=== PATIENT | male | born 1950 | race Two or more races ===

== ENCOUNTER → 2024-04-08 | Emergency (ER) | payer OTHER ==
[~2024-04-08] VITALS: Ht 175.3 cm; Wt 73.5 kg
[~2024-04-08] MED LIST: ACYCLOVIR SODIUM 500 MG VIAL IV ONE; ATORVASTATIN CA10 MG PO; COZAAR25 MG PO; METHYLPREDNISOLONE SOD SUCC 125 MG VIAL IV ONE
[2024-04-08 12:14] LABS: HEMATOCRIT 42.2 % (39.0-48.0); HEMOGLOBIN 14.8 g/dL (13-16.00); MEAN CELL VOLUME 84.6 fL (80.0-100.00); MEAN CORPUSCULAR HEMOGLOBIN 29.7 pg (27.00-32.0); MEAN CORPUSCULAR HGB CONC 35.1 g/dl (32.0-36.0); PLATELET COUNT 189 K/uL (150-450); RED BLOOD COUNT 4.99 M/uL (4.00-6.00)
[2024-04-08 12:34] LABS: CALCIUM 9.3 mg/dL (8.5-10.1); CREATININE SERUM 1.53 mg/dL (0.70-1.30); GFR 45.09; POTASSIUM 4.37 mEq/L (3.5-5.1)
[2024-04-08 13:18] LABS: PH,URINE 5.5 (5.0-8.0); URINE APPEARANCE Cloudy; URINE BACTERIA 12.5 uL (0.0-1933); URINE BILIRRUBIN Negative (NEGATIVE); URINE BLOOD Moderate; URINE COLOR Yellow; URINE GLUCOSE Negative (NEGATIVE); URINE KETONE Trace (NEGATIVE); URINE LEUKOCYTE Small; URINE NITRATE Negative; URINE PROTEIN 30 (NEGATIVE); URINE UROBILINOGEN 0.2 E.U./dl; URINE WBC 42.9 uL (0.0-23.2)
[2024-04-08 13:24] LABS: URINE CAST 1.22 uL (0.0-1.40)
== END | disposition designated cancer center or children's hospital (05) ==
LOC: ER 10:48
PROVIDERS: Emergency Medicine
DX: B02.39 Other herpes zoster eye disease (principal); I10 Essential (primary) hypertension
CPT/HCPCS: 36415; 96365; 99285; J3490